=== PATIENT | female | born 1930 | race Caucasian/White ===

== ENCOUNTER 2017-08-05 15:03 | Inpatient (IN) | payer OTHER ==
[~2017-08-05] VITALS: Ht 149.9 cm; Wt 48.8 kg
[~2017-08-05 15:03] MED LIST: ASCO-63 PO; CALC1TAB9 PO; CARV6.252 PO; DICL1GEL12 TD; LEVO75TA PO; LISI-461 PO; LORA-741 PO; MULTTAB58 PO; PRLSR20 PO; TYLOTC500 PO
--- NOTE | 2017-08-05 16:10 | EMERGENCY ROOM VISIT NOTE ---
History First contact with patient: 15:19 Chief Complaint: COUGH Stated Complaint: COUGH PAIN IN RIGHT SIDE, FEVER History of Present Illness 86F who presents to the Emergency Room with complaints of cough x 2 days. There is no hemoptysis or sputum. No sick contacts. She says she also feels cold. She was sent here from her PCP's office, in the office she had a temperature of 101F. She is also complaining of right upper quadrant pain that only happens in the morning, it's been happening for the past two days. She currently has no right upper quadrant pain. No history of gallbladder issues. PMHx: HTN, Hypothyroid Meds: Synthroid, PPI, Lisinopril, Coreg. SHx: Never smoker, never chewed. Review of Systems See HPI for pertinent positives and negatives. A total of ten systems were reviewed and were otherwise negative. Constitutional: + fever, + chills Respiratory: + cough, No sputum, No wheezing, No shortness of breath, No dyspnea on exertion Cardiovascular: No chest pain Abdomen: No pain, No nausea, No vomiting, No diarrhea, No constipation (lst BM) Musculoskeletal: No joint pain Genitourinary - Female: No dysuria Endocrine: No fatigue Past Medical/Surgical History Medical Problems: (1) CHF (congestive heart failure) (2) HTN (hypertension) Social History Smoking Status: Never Smoker Housing Status: lives with family Current/Historical Medications Scheduled Acetaminophen (Tylenol), 1,000 MG PO PRN Ascorbic Acid (Vitamin C), 500 MG PO DAILY Calcium Citrate-Vitamin D (Citracal + D3 Maximum), 1 TAB PO BID Carvedilol (Coreg), 6.25 MG PO BID Levothyroxine Sodium (Synthroid), 75 MCG PO DAILY Lisinopril (Zestril), 10 MG PO DAILY Multiple Vitamin (Multivitamin), 1 TAB PO DAILY Scheduled PRN Diclofenac Sodium (Topical) (Voltaren 1% Top Gel), 2 OZ TD DAILY PRN for Pain Lorazepam (Ativan), 0.25 MG PO BID PRN for VERTIGO Physical Exam Vital Signs Date Time Temp Pulse Resp B/P (MAP) Pulse Ox O2 Delivery O2 Flow Rate FiO2 08/05/17 17:12 73 20 107/42 96 Room Air 08/05/17 16:20 97 Room Air 08/05/17 15:10 36.9 67 18 103/55 97 Physical Exam Gen: No acute distress. Thin. Not ill appearing. HEENT: Head - normocephalic and atraumatic. Pupils are equal, round, and reactive to light. Extraocular eye muscles are intact and sclera are anicteric. Ears - bilaterally patent canals with noninjected tympanic membranes and no evidence of hemotympanum. Nose - moist nasal mucosa without discharge. Mouth - moist buccal mucosa. Oropharynx is nonerythematous and there is no tonsillar exudate or edema noted. Neck: Supple; no JVD, nuchal rigidity, cervical lymphadenopathy, or auscultated bruits. Heart: Regular rate and rhythm. There is a normal S1 and S2 with no murmurs, clicks, or gallops appreciated. Lungs: Clear to auscultation on the left with no wheezes, rales, or rhonchi. RLL crackles. Abdomen: Soft, completely nontender, nondistended, with good bowel sounds. There are no palpable pulsatile masses or hepatosplenomegaly. There is no guarding, rigidity, or rebound noted. Extremities: No evidence of cyanosis, clubbing, or edema. There are easily palpable peripheral pulses. Neuro:The patient is awake and alert, oriented to day, time, and place. Muscle strength is 5/5 in all 4 extremities. The patient has equal digital product manager strength and equal pedal push and pull. There are no cerebellar signs. Medical Decision & Procedures ER Provider Diagnostic Interpretation: CHEST ONE VIEW PORTABLE HISTORY: 86 years-old Female cough x 2 days, fever, RLL crackles acute cough with fever COMPARISON: Chest radiograph 06/19/2013 TECHNIQUE: Portable AP view of the chest FINDINGS: Cardiac silhouette is within normal limits in size. Atherosclerosis of the aorta. No pneumothorax. Focal opacity of the right lung base measures 2.5 x 2.3 cm with multiple additional alveolar opacities of the right lung base and lateral right midlung. Interstitial coarsening about the left lung base suggest scarring. Trace right pleural effusion. Degenerative changes of the shoulders and spine. Levoscoliosis of the lumbar spine. IMPRESSION: 1. Alveolar opacities about the right lung base with focal opacity measuring up to 2.5 cm. Infectious pneumonia and/or pulmonary nodule are considerations. Follow-up imaging to document complete resolution is needed. 2. Trace right pleural effusion. 3. Background chronic interstitial coarsening. Laboratory Results 08/05/17 16:15 Red Blood Count 2.82, Mean Corpuscular Volume 94.7, Mean Corpuscular Hemoglobin 32.6, Mean Corpuscular Hemoglobin Concent 34.5, Mean Platelet Volume 10.1, Neutrophils (%) (Auto) 84.1, Lymphocytes (%) (Auto) 8.2, Monocytes (%) (Auto) 7.1, Eosinophils (%) (Auto) 0.1, Basophils (%) (Auto) 0.1, Neutrophils # (Auto) 11.39, Lymphocytes # (Auto) 1.11, Monocytes # (Auto) 0.96, Eosinophils # (Auto) 0.01, Basophils # (Auto) 0.01 08/05/17 16:15 Test 08/05/17 16:15 08/05/17 16:23 White Blood Count 13.53 K/uL (4.8-10.8) Red Blood Count 2.82 M/uL (4.2-5.4) Hemoglobin 9.2 g/dL (12.0-16.0) Hematocrit 26.7 % (37-47) Mean Corpuscular Volume 94.7 fL (80-100) Mean Corpuscular Hemoglobin 32.6 pg (25-34) Mean Corpuscular Hemoglobin Concent 34.5 g/dl (32-36) Platelet Count 203 K/uL (130-400) Mean Platelet Volume 10.1 fL (7.4-10.4) Neutrophils (%) (Auto) 84.1 % Lymphocytes (%) (Auto) 8.2 % Monocytes (%) (Auto) 7.1 % Eosinophils (%) (Auto) 0.1 % Basophils (%) (Auto) 0.1 % Neutrophils # (Auto) 11.39 K/uL (1.4-6.5) Lymphocytes # (Auto) 1.11 K/uL (1.2-3.4) Monocytes # (Auto) 0.96 K/uL (0.11-0.59) Eosinophils # (Auto) 0.01 K/uL (0-0.5) Basophils # (Auto) 0.01 K/uL (0-0.2) RDW Standard Deviation 44.7 fL (36.4-46.3) RDW Coefficient of Variation 12.8 % (11.5-14.5) Immature Granulocyte % (Auto) 0.4 % Immature Granulocyte # (Auto) 0.05 K/uL (0.00-0.02) Anion Gap 6.0 mmol/L (3-11) Est Creatinine Clear Calc Drug Dose 18.7 ml/min Estimated GFR () 37.4 Estimated GFR (Non- 32.3 BUN/Creatinine Ratio 34.6 (10-20) Calcium Level 7.7 mg/dl (8.5-10.1) Total Bilirubin 0.5 mg/dl (0.2-1) Aspartate Amino Transf (AST/SGOT) 137 U/L (15-37) Alanine Aminotransferase (ALT/SGPT) 81 U/L (12-78) Alkaline Phosphatase 112 U/L (45-117) Total Protein 7.3 gm/dl (6.4-8.2) Albumin 2.4 gm/dl (3.4-5.0) Globulin 4.9 gm/dl (2.5-4.0) Albumin/Globulin Ratio 0.5 (0.9-2) Lipase 142 U/L (73-393) Bedside Troponin I < 0.030 ng/ml (0-0.045) Medications Administered Medications (Trade) Dose Ordered Sig/Miguel Route Start Time Stop Time Status Last Admin Dose Admin Sodium Chloride 500 ml @ 999 mls/hr Q31M STAT IV 08/05/17 16:57 08/05/17 17:27 DC 08/05/17 17:05 999 MLS/HR Sodium Chloride 1,000 ml @ 125 mls/hr Q8H STAT IV 08/05/17 16:57 08/06/17 00:56 08/05/17 17:05 125 MLS/HR Levofloxacin (Levaquin / D5W) 750 mg NOW STAT IV 08/05/17 16:57 08/05/17 16:58 DC 08/05/17 17:05 750 MG Medical Decision The patient's care and disposition was discussed with Dr. Watson, Attending ED Physician. This is a 86F with cough x 2 days. Differential diagnosis include pneumonia, viral syndrome, otitis, pharyngitis, pneumonia, influenza, meningitis, urinary tract infection, sepsis, bacteremia, as well as others were entertained. Triage Nursing notes were reviewed. ED Course included an extensive history and physical exam, labs, Xray and EKG. 3:15- Pt was examined by resident. 3:30 - Discussed patient with attending. 5pm - X-ray suggested Pneumonia, pt was given Levoquin and IVF and an ambulatory pulse ox. 5:15 - Result discussed extensively with patient and family. There is an unknown reason for the elevated liver enzymes. 5:45 - Ordering a hepatitis Panel and a liver US. Given the preference they would like to go home but only if medically able. Family understands that if patient becomes hypoxic while walking she will likely be a candidate for admission. Patient signed out to Dr. Watson. Head Trauma GCS Score: 15 Impression Primary Impression: Pneumonia Additional Impressions: Hyponatremia Elevated liver enzymes Departure Information Referrals Betty Bueno D.OFabricio (PCP) Patient Instructions My [facility] Resident Involvement: Resident Care Provided Care Provided: Adult ED Problem Qualifiers
--- NOTE | 2017-08-05 16:22 | DIAGNOSTIC IMAGING REPORT ---
CHEST ONE VIEW PORTABLE HISTORY: 86 years-old Female cough x 2 days, fever, RLL crackles acute cough with fever COMPARISON: Chest radiograph 06/19/2013 TECHNIQUE: Portable AP view of the chest FINDINGS: Cardiac silhouette is within normal limits in size. Atherosclerosis of the aorta. No pneumothorax. Focal opacity of the right lung base measures 2.5 x 2.3 cm with multiple additional alveolar opacities of the right lung base and lateral right midlung. Interstitial coarsening about the left lung base suggest scarring. Trace right pleural effusion. Degenerative changes of the shoulders and spine. Levoscoliosis of the lumbar spine. IMPRESSION: 1. Alveolar opacities about the right lung base with focal opacity measuring up to 2.5 cm. Infectious pneumonia and/or pulmonary nodule are considerations. Follow-up imaging to document complete resolution is needed. 2. Trace right pleural effusion. 3. Background chronic interstitial coarsening. The above report was generated using voice recognition software. It may contain grammatical, syntax or spelling errors. Electronically signed by: Watson Obrien M.D. 08/05/2017 4:21 PM Dictated Date/Time: 08/05/2017 4:19 PM
[2017-08-05 16:30] LABS: BASO % 0.1 %; BASO ABS # 0.01 K/uL (0-0.2); EOS % 0.1 %; EOS ABS # 0.01 K/uL (0-0.5); HEMATOCRIT 26.7 % (37-47); HEMOGLOBIN 9.2 g/dL (12.0-16.0); IG# 0.05 K/uL (0.00-0.02); LYMPH % 8.2 %; LYMPH ABS # 1.11 K/uL (1.2-3.4); MEAN CELL VOLUME 94.7 fL (80-100); MEAN CORPUSCULAR HEMOGLOBIN 32.6 pg (25-34); MEAN CORPUSCULAR HGB CONC 34.5 g/dl (32-36); MEAN PLATELET VOLUME 10.1 fL (7.4-10.4); MONO % 7.1 %; MONO ABS # 0.96 K/uL (0.11-0.59); NEUT % 84.1 %; NEUT ABS # 11.39 K/uL (1.4-6.5); PLATELET COUNT 203 K/uL (130-400); RED CELL DISTRIBUTION WIDTH CV 12.8 % (11.5-14.5); RED CELL DISTRIBUTION WIDTH SD 44.7 fL (36.4-46.3); WHITE BLOOD COUNT 13.53 K/uL (4.8-10.8)
[2017-08-05 16:54] LABS: ALBUMIN 2.4 gm/dl (3.4-5.0); CALCIUM 7.7 mg/dl (8.5-10.1); CREATININE 1.45 mg/dl (0.60-1.20); POTASSIUM 4.3 mmol/L (3.5-5.1)
[2017-08-05 16:57] LABS: TOTAL PROTEIN 7.3 gm/dl (6.4-8.2)
[2017-08-05] MEDS ORDERED: SODIUM CHLORIDE 0.9% 1000ML 1,000 ML IV STA (16:57)
[2017-08-05] MEDS ORDERED: LEVAQUIN 750MG / 150ML D5W IV STA (16:57)
[2017-08-05] MEDS ORDERED: SODIUM CHLORIDE 0.9% 500ML 500 ML IV STA (16:57)
[2017-08-05 18:54] LABS: HEP C IGG 13 YRS+OLDER_RFLX NEG (NEG)
--- NOTE | 2017-08-05 20:41 | EMERGENCY ROOM VISIT NOTE ---
History Report prepared by Ivelisse: Andrea Alford Under the Supervision of: Dr. Gutierrez Watson M.D. First contact with patient: 15:19 Chief Complaint: COUGH Stated Complaint: COUGH PAIN IN RIGHT SIDE, FEVER History of Present Illness The patient is an 86 year old female with a history of hypertension and resolved CHF who presents to the Emergency Room with complaints of an intermittent cough that started 2 days ago. She has no hemoptysis. The patient says that she has been having chills, and her primary care physician today noted that the patient had a fever of 101 today. The patient adds that she has had right upper quadrant abdominal pain for the past 2 days, which is only in the morning. Once she gets up she is fine. The patient notes that she has had decreased PO intake recently, and adds that she has been having a blood pressure recently that is elevated for her. Pt denies LOC, headache, diaphoresis , visual changes, neck pain, chest pain, breathing difficulties, nausea, vomiting, back pain, melena, hematochezia, urinary symptoms, numbness, weakness , lymphadenopathy, rash, or other complaints. Source of History: patient Onset: 2 days ago Position: other (global) Symptom Intensity: no hemoptysis Quality: other (cough) Timing: intermittent Associated Symptoms: + fevers, + chills, + abdominal pain (RUQ) Note: Associated symptoms: Elevated blood pressure subjectively. Decreased PO intake. Review of Systems See HPI for pertinent positives and negatives. A total of ten systems were reviewed and were otherwise negative. Past Medical & Surgical Medical Problems: (1) CHF (congestive heart failure) (2) HTN (hypertension) Family History Family history omitted secondary to patient's advanced age. Social History Smoking Status: Never Smoker Marital Status: Housing Status: lives with family Occupation Status: retired Current/Historical Medications Scheduled Acetaminophen (Tylenol), 1,000 MG PO PRN Ascorbic Acid (Vitamin C), 500 MG PO DAILY Calcium Citrate-Vitamin D (Citracal + D3 Maximum), 1 TAB PO BID Carvedilol (Coreg), 6.25 MG PO BID Levothyroxine Sodium (Synthroid), 75 MCG PO DAILY Lisinopril (Zestril), 10 MG PO DAILY Multiple Vitamin (Multivitamin), 1 TAB PO DAILY Scheduled PRN Diclofenac Sodium (Topical) (Voltaren 1% Top Gel), 2 OZ TD DAILY PRN for Pain Lorazepam (Ativan), 0.25 MG PO BID PRN for VERTIGO Allergies Coded Allergies: Sulfa Drugs (Verified Allergy, Unknown, 08/05/17) Physical Exam Vital Signs Date Time Temp Pulse Resp B/P (MAP) Pulse Ox O2 Delivery O2 Flow Rate FiO2 08/05/17 19:32 18 97 Nasal Cannula 2.0 08/05/17 19:29 68 18 132/63 84 Room Air 08/05/17 18:10 74 20 107/46 96 Room Air 08/05/17 17:12 73 20 107/42 96 Room Air 08/05/17 16:20 97 Room Air 08/05/17 15:10 36.9 67 18 103/55 97 Physical Exam GENERAL: Awake, alert, tired-appearing, in no distress HENT: Normocephalic, atraumatic. Oropharynx unremarkable. EYES: Normal conjunctiva. Sclera non-icteric. NECK: Supple. No nuchal rigidity. FROM. No masses. RESPIRATORY: Crackles right base. No wheezes. No rales. CARDIAC: Normal rate. Normal rhythm. No murmurs. No rubs. Extremities warm and well perfused. Pulses equal. No JVD. GI: Soft, non-distended. No tenderness to palpation. No rebound or guarding. No masses. RECTAL: Deferred. MUSCULOSKELETAL: Atraumatic. Chest examination reveals no tenderness. The back is symmetrical on inspection without obvious abnormality. There is no CVA tenderness to palpation. No joint edema. LOWER EXTREMITIES: Calves are equal size bilaterally and non-tender. No edema. No discoloration. NEURO: Normal sensorium. No sensory or motor deficits noted. SKIN: No rash or jaundice noted. Medical Decision & Procedures ER Provider Diagnostic Interpretation: X-ray: Per my interpretation, radiologist review. CHEST ONE VIEW PORTABLE HISTORY: 86 years-old Female cough x 2 days, fever, RLL crackles acute cough with fever COMPARISON: Chest radiograph 06/19/2013 TECHNIQUE: Portable AP view of the chest FINDINGS: Cardiac silhouette is within normal limits in size. Atherosclerosis of the aorta. No pneumothorax. Focal opacity of the right lung base measures 2.5 x 2.3 cm with multiple additional alveolar opacities of the right lung base and lateral right midlung. Interstitial coarsening about the left lung base suggest scarring. Trace right pleural effusion. Degenerative changes of the shoulders and spine. Levoscoliosis of the lumbar spine. IMPRESSION: 1. Alveolar opacities about the right lung base with focal opacity measuring up to 2.5 cm. Infectious pneumonia and/or pulmonary nodule are considerations. Follow-up imaging to document complete resolution is needed. 2. Trace right pleural effusion. 3. Background chronic interstitial coarsening. The above report was generated using voice recognition software. It may contain grammatical, syntax or spelling errors. Electronically signed by: Watson Obrien M.D. 08/05/2017 4:21 PM Dictated Date/Time: 08/05/2017 4:19 PM Laboratory Results 08/05/17 16:15 Red Blood Count 2.82, Mean Corpuscular Volume 94.7, Mean Corpuscular Hemoglobin 32.6, Mean Corpuscular Hemoglobin Concent 34.5, Mean Platelet Volume 10.1, Neutrophils (%) (Auto) 84.1, Lymphocytes (%) (Auto) 8.2, Monocytes (%) (Auto) 7.1, Eosinophils (%) (Auto) 0.1, Basophils (%) (Auto) 0.1, Neutrophils # (Auto) 11.39, Lymphocytes # (Auto) 1.11, Monocytes # (Auto) 0.96, Eosinophils # (Auto) 0.01, Basophils # (Auto) 0.01 08/05/17 16:15 Test 08/05/17 16:15 08/05/17 16:23 White Blood Count 13.53 K/uL (4.8-10.8) Red Blood Count 2.82 M/uL (4.2-5.4) Hemoglobin 9.2 g/dL (12.0-16.0) Hematocrit 26.7 % (37-47) Mean Corpuscular Volume 94.7 fL (80-100) Mean Corpuscular Hemoglobin 32.6 pg (25-34) Mean Corpuscular Hemoglobin Concent 34.5 g/dl (32-36) Platelet Count 203 K/uL (130-400) Mean Platelet Volume 10.1 fL (7.4-10.4) Neutrophils (%) (Auto) 84.1 % Lymphocytes (%) (Auto) 8.2 % Monocytes (%) (Auto) 7.1 % Eosinophils (%) (Auto) 0.1 % Basophils (%) (Auto) 0.1 % Neutrophils # (Auto) 11.39 K/uL (1.4-6.5) Lymphocytes # (Auto) 1.11 K/uL (1.2-3.4) Monocytes # (Auto) 0.96 K/uL (0.11-0.59) Eosinophils # (Auto) 0.01 K/uL (0-0.5) Basophils # (Auto) 0.01 K/uL (0-0.2) RDW Standard Deviation 44.7 fL (36.4-46.3) RDW Coefficient of Variation 12.8 % (11.5-14.5) Immature Granulocyte % (Auto) 0.4 % Immature Granulocyte # (Auto) 0.05 K/uL (0.00-0.02) Anion Gap 6.0 mmol/L (3-11) Est Creatinine Clear Calc Drug Dose 18.7 ml/min Estimated GFR () 37.4 Estimated GFR (Non- 32.3 BUN/Creatinine Ratio 34.6 (10-20) Calcium Level 7.7 mg/dl (8.5-10.1) Total Bilirubin 0.5 mg/dl (0.2-1) Aspartate Amino Transf (AST/SGOT) 137 U/L (15-37) Alanine Aminotransferase (ALT/SGPT) 81 U/L (12-78) Alkaline Phosphatase 112 U/L (45-117) Total Protein 7.3 gm/dl (6.4-8.2) Albumin 2.4 gm/dl (3.4-5.0) Globulin 4.9 gm/dl (2.5-4.0) Albumin/Globulin Ratio 0.5 (0.9-2) Lipase 142 U/L (73-393) Hepatitis B Surface Antigen NEG (NEG) Hepatitis B Surface Antibody POS Hepatitis C Antibody NEG (NEG) Bedside Troponin I < 0.030 ng/ml (0-0.045) Laboratory results reviewed by me Medications Administered Medications (Trade) Dose Ordered Sig/Miguel Route Start Time Stop Time Status Last Admin Dose Admin Sodium Chloride 500 ml @ 999 mls/hr Q31M STAT IV 08/05/17 16:57 08/05/17 17:27 DC 08/05/17 17:05 999 MLS/HR Sodium Chloride 1,000 ml @ 125 mls/hr Q8H STAT IV 08/05/17 16:57 08/06/17 00:56 08/05/17 17:05 125 MLS/HR Levofloxacin (Levaquin / D5W) 750 mg NOW STAT IV 08/05/17 16:57 08/05/17 16:58 DC 08/05/17 17:05 750 MG ECG Per My Interpretation Indication: abdominal pain Rate (beats per minute): 75 Rhythm: normal sinus Findings: LBBB, no acute ischemic change Comparison ECG Date: compared to 06/16/13, LBBB is new but was present in 2009 ED Course 1527: The patient was evaluated in room C6 by the resident. A complete history and physical exam was performed. 1649: The patient was evaluated in room C6 by myself. A complete history and physical exam was performed. 1656: Levaquin / D5W 750 mg IV, NSS 1000 ml @ 125 mls/hr IV, NSS 500 ml @ 999 mls/hr IV. 0: Upon reexamination, the patient was hypoxic on ambulation. I discussed the test results and treatment plan with her. The patient will be evaluated for further management. 1937: I discussed the patient with Dr. Feliz Jarvis security orderly - he will evaluate the patient for further treatment. Medical Decision Prior records/ancillary studies reviewed. Triage Nursing notes reviewed and agree them. Additional history obtained from the family. The patient's history was concerning for cough and fever. Differential diagnosis: Etiologies such as pneumonia, COPD, reactive airway disease, CHF, cardiac ischemia, pulmonary embolism, pneumothorax, musculoskeletal, infections, gastrointestinal, as well as others were entertained. Physical examination: As above. The patient was noted to have hypoxia when she was ambulated. ER treatment provided: Normal saline hydration IV Levaquin Supplemental oxygen On reassessment the patient felt better. Diagnostic interpretation by me: The electrocardiogram was negative for pathologic change. The labs revealed a moderate leukocytosis and anemia on CBC. Chemistry panel was unremarkable. Imaging studies: Chest x-ray as above. Consultation: A consultation was placed with the hospitalist. The case was discussed and diagnostics were reviewed. The patient was evaluated in the ER for further treatment. The patient was seen and examined with Dr. Cherry, resident physician. We discussed the case and treatments ordered, reviewed the results, and determine the disposition. Please refer to the resident's note for additional details. I have been directly involved with the management and disposition as well as independently evaluated the patient as documented in this note. Medication Reconcilliation Current Medication List: was personally reviewed by me Blood Pressure Screening Patient's blood pressure: Normal blood pressure Consults Time Called: 1934 Consulting Physician: Dr. Feliz Jarvis security orderly Returned Call: 1937 I discussed the patient with Dr. Feliz Jarvis security orderly - he will evaluate the patient for further treatment. Impression Primary Impression: PNA (pneumonia) Additional Impression: Hypoxia Scribe Attestation The scribe's documentation has been prepared under my direction and personally reviewed by me in its entirety. I confirm that the note above accurately reflects all work, treatment, procedures, and medical decision making performed by me. Departure Information Dispostion Being Evaluated By Hospitalist Referrals Betty Bueno D.O. (PCP) Patient Instructions My [facility] Problem Qualifiers
--- NOTE | 2017-08-05 20:53 | DIAGNOSTIC IMAGING REPORT ---
(LIVER) ABDOMEN LIMITED HISTORY: 86 years-old Female elevated LFTS and RUQ pain acute right upper quadrant abdominal pain COMPARISON: Chest radiograph 08/05/2017 TECHNIQUE: Multiple real-time sonographic images of the abdominal right upper quadrant were obtained assessing grayscale appearance and color flow FINDINGS: Right-sided pleural effusion incidentally noted. Pancreas appears unremarkable. Liver is within normal limits without focal mass or intrahepatic or ductal dilation. Gallbladder is within normal limits without cholelithiasis. Gallbladder wall measures in the upper limits of normal at 3 mm. No pericholecystic fluid collections. Sonographic Davis sign reported as negative. There is a suggested phrygian cap of the fundal Gallbladder. Common bile duct is normal, 5 mm. Mildly thinned cortex is noted throughout the right kidney. Complex cystic lesion of the superior pole right kidney measures up to 2.5 cm without internal vascularity. Mild pelvic fullness suggests external renal pelvis without shital hydronephrosis. IMPRESSION: 1. No cholelithiasis or acute cholecystitis. 2. No biliary ductal dilation. 3. Complex cystic lesion of the superior pole right kidney, 2.5 cm without internal vascularity identified. 4. Small right pleural effusion. The above report was generated using voice recognition software. It may contain grammatical, syntax or spelling errors. Electronically signed by: Watson Obrien M.D. 08/05/2017 8:52 PM Dictated Date/Time: 08/05/2017 8:48 PM
[2017-08-05] MEDS ORDERED: LEVO50TA6 PO (21:09)
[2017-08-05] MEDS ORDERED: BENZONATATE 100MG CAP PO PRN (21:15)
[2017-08-05 22:15] VITALS: BP 138/68; PULSE 76; TEMP 37.1; O2SAT 97; Ht 149.9 cm; Wt 48.8 kg
--- NOTE | 2017-08-06 01:53 | History and Physical ---
History & Physical Date & Time of Service: August 06, 2017 at 01:24 Chief Complaint: Cough, Pneumonia Primary Care Physician: Betty Bueno D.O. History of Present Illness Source: patient, clinic records, hospital records 86 years old female with past medical history of CKD stage III, anemia, hypothyroidism, hypertension presented to the ER from PCP office with chief complaint of cough for the past 4 days. Patient saw PCP today for nonproductive cough associated with weakness and poor oral intake. While at PCP office she was noted to have a temperature of 101F. Patient states she has not been eating much for the past 2 days. She said that she feels cold but that seems to be usual for her. She also complained of right lower rib and upper abdominal pain that occurs only in the morning when she wakes up, but as the day progress the pain improves. Denies any recent traveling or sick contacts. Denies any chest pain, palpitation, dizziness, shortness of breath, and pain. Past Medical/Surgical History Medical Problems: (1) CHF (congestive heart failure) (2) Conjunctivitis (3) Cough (4) Fall (5) Fracture of fourth metacarpal bone of right hand (6) HTN (hypertension) (7) Pneumonia (8) Sepsis (9) Sepsis (10) Wrist fracture, right Social History Smoking Status: Never Smoker Marital Status: Occupational Status: retired Immunizations History of Influenza Vaccine: Yes History of Tetanus Vaccine?: Yes History of Pneumococcal: Yes History of Hepatitis B Vaccine: Yes Allergies Coded Allergies: Sulfa Drugs (Verified Allergy, Unknown, 08/05/17) Home Medications Scheduled Acetaminophen (Tylenol), 500 MG PO PRN Ascorbic Acid (Vitamin C), 500 MG PO DAILY Calcium Citrate-Vitamin D (Citracal + D3 Maximum), 1 TAB PO BID Carvedilol (Coreg), 6.25 MG PO BID Levothyroxine Sodium (Levothyroxine Sodium), 1 TAB PO DAILY Lisinopril (Zestril), 10 MG PO DAILY Multiple Vitamin (Multivitamin), 1 TAB PO DAILY Scheduled PRN Diclofenac Sodium (Topical) (Voltaren 1% Top Gel), 2 OZ TD DAILY PRN for Pain Lorazepam (Ativan), 0.25 MG PO BID PRN for VERTIGO Review of Systems Constitutional: + fever, + chills, + weakness, + fatigue Eyes: No eye pain, No diplopia ENT: + problem reported (hearing aid), No nasal symptoms, No sore throat, No trouble swallowing Respiratory: + cough, No sputum, No shortness of breath, No dyspnea on exertion Cardiovascular: No chest pain, No claudication, No palpitations Abdomen: + pain, No nausea, No vomiting, No diarrhea, No constipation Musculoskeletal: No swelling, No calf pain Genitourinary - Female: No dysuria, No urinary frequency Neurologic: + weakness, No paralysis Psychiatric: No substance abuse Endocrine: + fatigue Hematologic / Lymphatic: No abnormal bleeding/bruising Integumentary: No rash, No itch Physical Exam Vital Signs Date Time Temp Pulse Resp B/P (MAP) Pulse Ox O2 Delivery O2 Flow Rate FiO2 08/05/17 22:15 37.1 76 18 138/68 97 Nasal Cannula 2.0 08/05/17 22:00 65 20 125/58 96 Nasal Cannula 2.0 08/05/17 20:45 70 116/82 96 Nasal Cannula 2.0 08/05/17 19:32 18 97 Nasal Cannula 2.0 08/05/17 19:29 68 18 132/63 84 Room Air 08/05/17 18:10 74 20 107/46 96 Room Air 08/05/17 17:12 73 20 107/42 96 Room Air 08/05/17 16:20 97 Room Air 08/05/17 15:10 36.9 67 18 103/55 97 General Appearance: WD/WN, no apparent distress Head: normocephalic, atraumatic Eyes: PERRL, EOMI ENT: + pertinent finding (decrease hearing function) Neck: no JVD, trachea midline Respiratory/Chest: chest non-tender, no respiratory distress, no accessory muscle use, + crackles (right side) Cardiovascular: regular rate, rhythm, no JVD, no murmur Abdomen/GI: normal bowel sounds, non tender, soft Back: no CVA tenderness Extremities/Musculoskelatal: no calf tenderness Neurologic/Psych: no motor/sensory deficits, alert, oriented x 3 Skin: warm/dry, no rash Diagnostics Laboratory Results Results Past 24 Hours Test 08/05/17 16:15 08/05/17 16:23 Range/Units White Blood Count 13.53 4.8-10.8 K/uL Red Blood Count 2.82 4.2-5.4 M/uL Hemoglobin 9.2 12.0-16.0 g/dL Hematocrit 26.7 37-47 % Mean Corpuscular Volume 94.7 80-100 fL Mean Corpuscular Hemoglobin 32.6 25-34 pg Mean Corpuscular Hemoglobin Concent 34.5 32-36 g/dl Platelet Count 203 130-400 K/uL Mean Platelet Volume 10.1 7.4-10.4 fL Neutrophils (%) (Auto) 84.1 % Lymphocytes (%) (Auto) 8.2 % Monocytes (%) (Auto) 7.1 % Eosinophils (%) (Auto) 0.1 % Basophils (%) (Auto) 0.1 % Neutrophils # (Auto) 11.39 1.4-6.5 K/uL Lymphocytes # (Auto) 1.11 1.2-3.4 K/uL Monocytes # (Auto) 0.96 0.11-0.59 K/uL Eosinophils # (Auto) 0.01 0-0.5 K/uL Basophils # (Auto) 0.01 0-0.2 K/uL RDW Standard Deviation 44.7 36.4-46.3 fL RDW Coefficient of Variation 12.8 11.5-14.5 % Immature Granulocyte % (Auto) 0.4 % Immature Granulocyte # (Auto) 0.05 0.00-0.02 K/uL Sodium Level 129 136-145 mmol/L Potassium Level 4.3 3.5-5.1 mmol/L Chloride Level 98 98-107 mmol/L Carbon Dioxide Level 25 21-32 mmol/L Anion Gap 6.0 3-11 mmol/L Blood Urea Nitrogen 50 7-18 mg/dl Creatinine 1.45 0.60-1.20 mg/dl Est Creatinine Clear Calc Drug Dose 18.7 ml/min Estimated GFR () 37.4 Estimated GFR (Non- 32.3 BUN/Creatinine Ratio 34.6 10-20 Random Glucose 137 70-99 mg/dl Calcium Level 7.7 8.5-10.1 mg/dl Total Bilirubin 0.5 0.2-1 mg/dl Aspartate Amino Transf (AST/SGOT) 137 15-37 U/L Alanine Aminotransferase (ALT/SGPT) 81 12-78 U/L Alkaline Phosphatase 112 45-117 U/L Total Protein 7.3 6.4-8.2 gm/dl Albumin 2.4 3.4-5.0 gm/dl Globulin 4.9 2.5-4.0 gm/dl Albumin/Globulin Ratio 0.5 0.9-2 Lipase 142 73-393 U/L Hepatitis B Surface Antigen NEG NEG Hepatitis B Surface Antibody POS Hepatitis C Antibody NEG NEG Bedside Troponin I < 0.030 0-0.045 ng/ml Microbiology Results 08/05/17 Blood Culture, Received Pending 08/05/17 Blood Culture, Received Pending Diagnostic Radiology (LIVER) ABDOMEN LIMITED HISTORY: 86 years-old Female elevated LFTS and RUQ pain acute right upper quadrant abdominal pain COMPARISON: Chest radiograph 08/05/2017 TECHNIQUE: Multiple real-time sonographic images of the abdominal right upper quadrant were obtained assessing grayscale appearance and color flow FINDINGS: Right-sided pleural effusion incidentally noted. Pancreas appears unremarkable. Liver is within normal limits without focal mass or intrahepatic or ductal dilation. Gallbladder is within normal limits without cholelithiasis. Gallbladder wall measures in the upper limits of normal at 3 mm. No pericholecystic fluid collections. Sonographic Davis sign reported as negative. There is a suggested phrygian cap of the fundal Gallbladder. Common bile duct is normal, 5 mm. Mildly thinned cortex is noted throughout the right kidney. Complex cystic lesion of the superior pole right kidney measures up to 2.5 cm without internal vascularity. Mild pelvic fullness suggests external renal pelvis without shital hydronephrosis. IMPRESSION: 1. No cholelithiasis or acute cholecystitis. 2. No biliary ductal dilation. 3. Complex cystic lesion of the superior pole right kidney, 2.5 cm without internal vascularity identified. 4. Small right pleural effusion. The above report was generated using voice recognition software. It may contain grammatical, syntax or spelling errors. Electronically signed by: Watson Obrien M.D. 08/05/2017 8:52 PM Dictated Date/Time: 08/05/2017 8:48 PM [~ rep ct add3]] CHEST ONE VIEW PORTABLE HISTORY: 86 years-old Female cough x 2 days, fever, RLL crackles acute cough with fever COMPARISON: Chest radiograph 06/19/2013 TECHNIQUE: Portable AP view of the chest FINDINGS: Cardiac silhouette is within normal limits in size. Atherosclerosis of the aorta. No pneumothorax. Focal opacity of the right lung base measures 2.5 x 2.3 cm with multiple additional alveolar opacities of the right lung base and lateral right midlung. Interstitial coarsening about the left lung base suggest scarring. Trace right pleural effusion. Degenerative changes of the shoulders and spine. Levoscoliosis of the lumbar spine. IMPRESSION: 1. Alveolar opacities about the right lung base with focal opacity measuring up to 2.5 cm. Infectious pneumonia and/or pulmonary nodule are considerations. Follow-up imaging to document complete resolution is needed. 2. Trace right pleural effusion. 3. Background chronic interstitial coarsening. The above report was generated using voice recognition software. It may contain grammatical, syntax or spelling errors. Electronically signed by: Watson Obrien M.D. 08/05/2017 4:21 PM Dictated Date/Time: 08/05/2017 4:19 PM Impression Assessment and Plan Pneumonia Nonproductive cough Was sent from PCP office for fever CXR showed alveolar opacities about the right lung base with focal opacity measuring up to 2.5 cm. Receive Levaquin in the ER Continue Levaquin 750mg Check blood culture DuoNeb treatment Will need repeat chest x-ray in 4-6 weeks to ensure complete resolution Elevated liver enzyme Hep C Liver ultrasound showed no biliary ductal dilation Complex cystic lesion of the superior pole right kidney, 2.5 cm without internal vascularity identified. Monitor liver enzyme Hypertension Continue lisinopril and coreg BP stable CKD stage III Creatinine baseline between 1.2 to 1.4 Creatinine on admission 1.4 Monitor BMP Hypothyroidism Check TSH Continue levothyroxine Hyponatremia Possible related to poor oral intake Sodium on admission 129 Monitor BMP Congestive heart failure No sign of overload Stable DVT prophylaxis on heparin subcu CODE STATUS full no mechanical ventilation Resuscitation Status VTE Prophylaxis Will order VTE Prophylaxis: Yes
[2017-08-06] MEDS ORDERED: ALBUT/IPRATROP 3MG/0.5MG NEB 3 ML VIAL INH PRN (05:15)
[2017-08-06] MEDS: LEVOTHYROXINE 50 MCG TAB PO SCH (05:46)
[2017-08-06 06:14] LABS: HEMATOCRIT 25.5 % (37-47); HEMOGLOBIN 8.8 g/dL (12.0-16.0); MEAN CELL VOLUME 95.1 fL (80-100); MEAN CORPUSCULAR HEMOGLOBIN 32.8 pg (25-34); MEAN CORPUSCULAR HGB CONC 34.5 g/dl (32-36); MEAN PLATELET VOLUME 9.9 fL (7.4-10.4); PLATELET COUNT 206 K/uL (130-400); RED CELL DISTRIBUTION WIDTH CV 13.2 % (11.5-14.5); RED CELL DISTRIBUTION WIDTH SD 45.9 fL (36.4-46.3); WHITE BLOOD COUNT 11.01 K/uL (4.8-10.8)
[2017-08-06 06:20] LABS: INR 1.2 (0.9-1.1)
[2017-08-06 06:41] LABS: CALCIUM 7.5 mg/dl (8.5-10.1); CREATININE 1.12 mg/dl (0.60-1.20); POTASSIUM 4.1 mmol/L (3.5-5.1)
[2017-08-06 06:45] LABS: TOTAL PROTEIN 6.2 gm/dl (6.4-8.2)
[2017-08-06 07:02] VITALS: BP 91/50; PULSE 72; TEMP 36.7; O2SAT 97
[2017-08-06] MEDS: MULTIVITAMIN TAB PO SCH (08:47)
[2017-08-06] MEDS: CALCIUM 600MG + VIT D 400 IU TAB PO SCH ×2 (08:47→16:30)
[2017-08-06] MEDS: LISINOPRIL 10 MG TAB PO SCH (08:47)
[2017-08-06] MEDS: CARVEDILOL 6.25 MG TAB PO SCH ×2 (08:47→21:06)
[2017-08-06] MEDS: ASCORBIC ACID 500 MG TAB PO SCH (08:47)
[2017-08-06] MEDS: HEPARIN SOD 5000 UNIT/0.5 ML CARP SQ SCH ×2 (10:35→21:10)
--- NOTE | 2017-08-06 12:03 | Progress Note ---
Subjective Date of Service: August 06, 2017. Subjective Pt evaluation today including: conversation w/ patient, physical exam, lab review, review of studies, review of inpatient medication list Saw/examined the patient in room 256 She is feeling better than on admission, still feeling weak though cough persists, no fevers/chills today Problem List Medical Problems: (1) Elevated liver enzymes Status: Acute (2) Hyponatremia Status: Acute (3) Hypoxia Status: Acute (4) PNA (pneumonia) Status: Acute (5) Pneumonia Status: Acute Review of Systems Constitutional: + weakness, + fatigue, No fever, No chills Respiratory: + cough, + sputum, + shortness of breath, No wheezing, No dyspnea on exertion, No dyspnea at rest, No hemoptysis Cardiac: No chest pain, No edema, No palpitations Medications Current Inpatient Medications Medications (Trade) Dose Ordered Sig/Miguel Route Start Time Stop Time Status Last Admin Dose Admin Carvedilol (Coreg Tab) 6.25 mg BID PO 08/06/17 09:00 09/05/17 08:59 Levothyroxine Sodium (Synthroid Tab) 50 mcg DAILYBB PO 08/06/17 06:30 09/05/17 06:29 08/06/17 05:46 50 MCG Lisinopril (Zestril Tab) 10 mg DAILY PO 08/06/17 09:00 09/05/17 08:59 08/06/17 08:47 10 MG Multivitamins (Multivitamin Tab) 1 tab DAILY PO 08/06/17 09:00 09/05/17 08:59 08/06/17 08:47 1 TAB Ascorbic Acid (Vitamin C Tab) 500 mg DAILY PO 08/06/17 09:00 09/05/17 08:59 08/06/17 08:47 500 MG Calcium/Vitamin D (Caltrate Plus Tab) 1 tab BID17 PO 08/06/17 09:00 09/05/17 08:59 08/06/17 08:47 1 TAB Benzonatate (Tessalon Perles Cap) 100 mg TID PRN PO 08/05/17 21:15 09/04/17 21:14 Levofloxacin 750 mg/Prmx 150 ml @ 100 mls/hr Q2D IV 08/07/17 17:00 08/14/17 16:59 Heparin Sodium (Porcine) (Heparin Sq 5000 Unit/0.5ml) 5,000 unit Q12 SQ 08/06/17 09:00 09/05/17 08:59 08/06/17 10:35 5,000 UNIT Albuterol/ Ipratropium (Duoneb) 3 ml Q4R PRN INH 08/06/17 05:15 09/05/17 05:14 Objective Vital Signs Date Time Temp Pulse Resp B/P (MAP) Pulse Ox O2 Delivery O2 Flow Rate FiO2 08/06/17 08:00 Nasal Cannula 2.0 08/06/17 07:02 36.7 72 18 91/50 (64) 97 Nasal Cannula 2.0 08/06/17 01:25 Nasal Cannula 2.0 08/05/17 22:15 37.1 76 18 138/68 97 Nasal Cannula 2.0 08/05/17 22:00 65 20 125/58 96 Nasal Cannula 2.0 08/05/17 20:45 70 116/82 96 Nasal Cannula 2.0 08/05/17 19:32 18 97 Nasal Cannula 2.0 08/05/17 19:29 68 18 132/63 84 Room Air 08/05/17 18:10 74 20 107/46 96 Room Air 08/05/17 17:12 73 20 107/42 96 Room Air 08/05/17 16:20 97 Room Air 08/05/17 15:10 36.9 67 18 103/55 97 Physical Exam General Appearance: no apparent distress Respiratory/Chest: chest non-tender, lungs clear, normal breath sounds, no respiratory distress, no accessory muscle use Cardiovascular: regular rate, rhythm, no edema, no gallop, no JVD, no murmur Abdomen: normal bowel sounds, non tender, soft Extremities: normal range of motion, non-tender, normal inspection, no pedal edema, no calf tenderness Neurologic/Psychiatric: no motor/sensory deficits, alert, normal mood/affect Laboratory Results Last 24 Hours Test 08/05/17 16:15 08/05/17 16:23 08/06/17 06:00 White Blood Count 13.53 K/uL 11.01 K/uL Red Blood Count 2.82 M/uL 2.68 M/uL Hemoglobin 9.2 g/dL 8.8 g/dL Hematocrit 26.7 % 25.5 % Mean Corpuscular Volume 94.7 fL 95.1 fL Mean Corpuscular Hemoglobin 32.6 pg 32.8 pg Mean Corpuscular Hemoglobin Concent 34.5 g/dl 34.5 g/dl Platelet Count 203 K/uL 206 K/uL Mean Platelet Volume 10.1 fL 9.9 fL Neutrophils (%) (Auto) 84.1 % Lymphocytes (%) (Auto) 8.2 % Monocytes (%) (Auto) 7.1 % Eosinophils (%) (Auto) 0.1 % Basophils (%) (Auto) 0.1 % Neutrophils # (Auto) 11.39 K/uL Lymphocytes # (Auto) 1.11 K/uL Monocytes # (Auto) 0.96 K/uL Eosinophils # (Auto) 0.01 K/uL Basophils # (Auto) 0.01 K/uL RDW Standard Deviation 44.7 fL 45.9 fL RDW Coefficient of Variation 12.8 % 13.2 % Immature Granulocyte % (Auto) 0.4 % Immature Granulocyte # (Auto) 0.05 K/uL Sodium Level 129 mmol/L 135 mmol/L Potassium Level 4.3 mmol/L 4.1 mmol/L Chloride Level 98 mmol/L 104 mmol/L Carbon Dioxide Level 25 mmol/L 22 mmol/L Anion Gap 6.0 mmol/L 9.0 mmol/L Blood Urea Nitrogen 50 mg/dl 38 mg/dl Creatinine 1.45 mg/dl 1.12 mg/dl Est Creatinine Clear Calc Drug Dose 18.7 ml/min 24.2 ml/min Estimated GFR () 37.4 51.2 Estimated GFR (Non- 32.3 44.1 BUN/Creatinine Ratio 34.6 34.3 Random Glucose 137 mg/dl 88 mg/dl Calcium Level 7.7 mg/dl 7.5 mg/dl Total Bilirubin 0.5 mg/dl 0.4 mg/dl Aspartate Amino Transf (AST/SGOT) 137 U/L 109 U/L Alanine Aminotransferase (ALT/SGPT) 81 U/L 73 U/L Alkaline Phosphatase 112 U/L 92 U/L Total Protein 7.3 gm/dl 6.2 gm/dl Albumin 2.4 gm/dl 2.0 gm/dl Globulin 4.9 gm/dl 4.2 gm/dl Albumin/Globulin Ratio 0.5 0.5 Lipase 142 U/L Hepatitis B Surface Antigen NEG Hepatitis B Surface Antibody POS Hepatitis C Antibody NEG Bedside Troponin I < 0.030 ng/ml Prothrombin Time 12.1 SECONDS Prothromb Time International Ratio 1.2 Assessment and Plan This is an 86 year old female with a past medical history of HTN, hypothyroidism , CKD stage 3, chronic anemia, chronic diastolic CHF - presents with cough, fever and found to have pneumonia Community Acquired Pneumonia - CXR - Alveolar opacities about the right lung base with focal opacity measuring up to 2.5 cm. Infectious pneumonia and/or pulmonary nodule are considerations. Follow-up imaging to document complete resolution is needed. - fevers, cough, white count elevation - giving Levaquin and IVFs - white count improving, clinically improving, monitor - likely d/c home in 1-2 days with abx. Acute Kidney Injury superimposed on CKD stage 3 - creatinine up to 1.4 on admission - improved after fluids - monitor creat HTN - blood pressure stable, monitor for hypotension - for now continue Lisinopril DVT ppx - subq heparin FULL, NO VENT
[2017-08-06 15:04] VITALS: BP 93/51; PULSE 65; TEMP 36.7; O2SAT 98
[2017-08-06 21:05] VITALS: BP 108/46; PULSE 71; O2SAT 99
[2017-08-07] VITALS (7 sets, daily range): BP systolic 71–116; BP diastolic 39–58; PULSE 63–81; TEMP 36.8–36.9; O2SAT 96–100
[2017-08-07 06:24] LABS: HEMATOCRIT 24.7 % (37-47); HEMOGLOBIN 8.5 g/dL (12.0-16.0); MEAN CORPUSCULAR HEMOGLOBIN 32.7 pg (25-34); MEAN CORPUSCULAR HGB CONC 34.4 g/dl (32-36); MEAN PLATELET VOLUME 9.6 fL (7.4-10.4); PLATELET COUNT 230 K/uL (130-400); RED CELL DISTRIBUTION WIDTH CV 13.1 % (11.5-14.5); RED CELL DISTRIBUTION WIDTH SD 45.9 fL (36.4-46.3); WHITE BLOOD COUNT 9.07 K/uL (4.8-10.8)
[2017-08-07] MEDS: LEVOTHYROXINE 50 MCG TAB PO SCH (06:38)
[2017-08-07 06:44] LABS: CALCIUM 7.4 mg/dl (8.5-10.1); CREATININE 1.06 mg/dl (0.60-1.20); POTASSIUM 4.2 mmol/L (3.5-5.1)
[2017-08-07] MEDS: CARVEDILOL 6.25 MG TAB PO SCH ×2 (07:47→20:32)
[2017-08-07] MEDS: CALCIUM 600MG + VIT D 400 IU TAB PO SCH ×2 (07:47→16:54)
[2017-08-07] MEDS: MULTIVITAMIN TAB PO SCH (07:47)
[2017-08-07] MEDS: LISINOPRIL 10 MG TAB PO SCH (07:48)
[2017-08-07] MEDS: HEPARIN SOD 5000 UNIT/0.5 ML CARP SQ SCH ×2 (07:48→20:34)
[2017-08-07] MEDS: ASCORBIC ACID 500 MG TAB PO SCH (07:48)
--- NOTE | 2017-08-07 12:49 | Progress Note ---
Subjective Date of Service: August 07, 2017. Subjective Pt evaluation today including: conversation w/ patient, physical exam, lab review, review of studies, review of inpatient medication list Problem List Medical Problems: (1) Elevated liver enzymes Status: Acute (2) Hyponatremia Status: Acute (3) Hypoxia Status: Acute (4) PNA (pneumonia) Status: Acute (5) Pneumonia Status: Acute Review of Systems Constitutional: + weakness, No fever, No chills Respiratory: No cough, No sputum, No shortness of breath Cardiac: No chest pain, No edema, No palpitations Medications Current Inpatient Medications Medications (Trade) Dose Ordered Sig/Miguel Route Start Time Stop Time Status Last Admin Dose Admin Carvedilol (Coreg Tab) 6.25 mg BID PO 08/06/17 09:00 09/05/17 08:59 08/07/17 07:47 6.25 MG Levothyroxine Sodium (Synthroid Tab) 50 mcg DAILYBB PO 08/06/17 06:30 09/05/17 06:29 08/07/17 06:38 50 MCG Lisinopril (Zestril Tab) 10 mg DAILY PO 08/06/17 09:00 09/05/17 08:59 08/07/17 07:48 10 MG Multivitamins (Multivitamin Tab) 1 tab DAILY PO 08/06/17 09:00 09/05/17 08:59 08/07/17 07:47 1 TAB Ascorbic Acid (Vitamin C Tab) 500 mg DAILY PO 08/06/17 09:00 09/05/17 08:59 08/07/17 07:48 500 MG Calcium/Vitamin D (Caltrate Plus Tab) 1 tab BID17 PO 08/06/17 09:00 09/05/17 08:59 08/07/17 07:47 1 TAB Benzonatate (Tessalon Perles Cap) 100 mg TID PRN PO 08/05/17 21:15 09/04/17 21:14 Levofloxacin 750 mg/Prmx 150 ml @ 100 mls/hr Q2D IV 08/07/17 17:00 08/14/17 16:59 Heparin Sodium (Porcine) (Heparin Sq 5000 Unit/0.5ml) 5,000 unit Q12 SQ 08/06/17 09:00 09/05/17 08:59 08/07/17 07:48 5,000 UNIT Albuterol/ Ipratropium (Duoneb) 3 ml Q4R PRN INH 08/06/17 05:15 09/05/17 05:14 Objective Vital Signs Date Time Temp Pulse Resp B/P (MAP) Pulse Ox O2 Delivery O2 Flow Rate FiO2 08/07/17 08:01 Nasal Cannula 2.0 08/07/17 07:20 36.9 63 20 107/58 (74) 98 Nasal Cannula 2.0 08/07/17 00:22 36.9 73 18 94/54 (67) 100 2.0 08/07/17 00:20 Nasal Cannula 2.0 08/06/17 21:05 71 108/46 (66) 99 Nasal Cannula 2.0 08/06/17 16:00 Nasal Cannula 2.0 08/06/17 15:04 36.7 65 18 93/51 (65) 98 Nasal Cannula 2.0 Physical Exam General Appearance: no apparent distress Respiratory/Chest: no respiratory distress, no accessory muscle use Cardiovascular: regular rate, rhythm, no edema, no murmur Extremities: normal inspection, no pedal edema Neurologic/Psychiatric: no motor/sensory deficits, alert, normal mood/affect Skin: normal color Lymphatic: no adenopathy Laboratory Results Last 24 Hours Test 08/07/17 06:15 White Blood Count 9.07 K/uL Red Blood Count 2.60 M/uL Hemoglobin 8.5 g/dL Hematocrit 24.7 % Mean Corpuscular Volume 95.0 fL Mean Corpuscular Hemoglobin 32.7 pg Mean Corpuscular Hemoglobin Concent 34.4 g/dl RDW Standard Deviation 45.9 fL RDW Coefficient of Variation 13.1 % Platelet Count 230 K/uL Mean Platelet Volume 9.6 fL Sodium Level 137 mmol/L Potassium Level 4.2 mmol/L Chloride Level 107 mmol/L Carbon Dioxide Level 23 mmol/L Anion Gap 7.0 mmol/L Blood Urea Nitrogen 36 mg/dl Creatinine 1.06 mg/dl Est Creatinine Clear Calc Drug Dose 25.5 ml/min Estimated GFR () 54.7 Estimated GFR (Non- 47.2 BUN/Creatinine Ratio 33.9 Random Glucose 86 mg/dl Calcium Level 7.4 mg/dl Assessment and Plan This is an 86 year old female with a past medical history of HTN, hypothyroidism , CKD stage 3, chronic anemia, chronic diastolic CHF - presents with cough, fever and found to have pneumonia Community Acquired Pneumonia 08/07 - patient is doing well - will order PT/OT and ambulate in hallways - plan to d/c home, likely does not need home health - will d/c with Levaquin to total about 7 days 08/06 - CXR - Alveolar opacities about the right lung base with focal opacity measuring up to 2.5 cm. Infectious pneumonia and/or pulmonary nodule are considerations. Follow-up imaging to document complete resolution is needed. - fevers, cough, white count elevation - giving Levaquin and IVFs - white count improving, clinically improving, monitor - likely d/c home in 1-2 days with abx. Acute Kidney Injury superimposed on CKD stage 3 - resolved - creatinine up to 1.4 on admission - improved after fluids - monitor creat HTN - blood pressure stable, monitor for hypotension - for now continue Lisinopril DVT ppx - subq heparin FULL, NO VENT
[2017-08-07] MEDS ORDERED: LEVOFLOXACIN / D5W 750 MG in PREMIXED IN D5W 150 ML IV SCH (17:00)
[2017-08-08 05:34] LABS: HEPATITIS A IGM TC 51813E NON-REACTIVE (NON-REACTIVE); HEPATITIS B CORE IGM TC51854R NON-REACTIVE (NON-REACTIVE)
[2017-08-08] MEDS: LEVOTHYROXINE 50 MCG TAB PO SCH (06:05)
[2017-08-08 06:50] VITALS: BP 132/65; PULSE 75; TEMP 36.6; O2SAT 95
[2017-08-08 07:33] LABS: HEMATOCRIT 25.7 % (37-47); MEAN CELL VOLUME 95.5 fL (80-100); MEAN CORPUSCULAR HEMOGLOBIN 33.5 pg (25-34); MEAN PLATELET VOLUME 10.1 fL (7.4-10.4); PLATELET COUNT 298 K/uL (130-400); RED CELL DISTRIBUTION WIDTH CV 13.5 % (11.5-14.5); RED CELL DISTRIBUTION WIDTH SD 47.7 fL (36.4-46.3); WHITE BLOOD COUNT 9.84 K/uL (4.8-10.8)
[2017-08-08] MEDS: CALCIUM 600MG + VIT D 400 IU TAB PO SCH (07:42)
[2017-08-08] MEDS: LISINOPRIL 10 MG TAB PO SCH (07:42)
[2017-08-08] MEDS: CARVEDILOL 6.25 MG TAB PO SCH (07:42)
[2017-08-08] MEDS: ASCORBIC ACID 500 MG TAB PO SCH (07:42)
[2017-08-08] MEDS: MULTIVITAMIN TAB PO SCH (07:42)
[2017-08-08] MEDS: HEPARIN SOD 5000 UNIT/0.5 ML CARP SQ SCH (07:43)
[2017-08-08 08:02] LABS: CALCIUM 7.7 mg/dl (8.5-10.1); CREATININE 1.18 mg/dl (0.60-1.20); POTASSIUM 4.3 mmol/L (3.5-5.1)
--- NOTE | 2017-08-08 08:14 | DIAGNOSTIC IMAGING REPORT ---
TWO VIEW CHEST CLINICAL HISTORY: Follow-up pneumonia. FINDINGS: PA and lateral chest radiographs are compared to study dated 08/05/2017. The cardiomediastinal silhouette is unremarkable. There is atherosclerotic calcification of the thoracic aorta. Emphysema is suspected and there is chronic interstitial thickening. There is patchy airspace consolidation at both lung bases, right larger than left. There is a small right pleural effusion. Foci of scarring are again noted in the upper lobes. There is no pneumothorax. The skeletal structures are osteopenic. Degenerative change is seen throughout the thoracic spine in the shoulders. IMPRESSION: 1. Bibasilar consolidation, right greater than left as not significantly changed from 08/05/2017. Continued follow-up to resolution is recommended. 2. There is a small right pleural effusion. Electronically signed by: Dimitri South M.D. 08/08/2017 8:13 AM Dictated Date/Time: 08/08/2017 8:11 AM
--- NOTE | 2017-08-08 10:03 | Progress Note ---
Subjective Date of Service: August 08, 2017. Subjective Pt evaluation today including: conversation w/ patient, physical exam, lab review, review of studies, review of inpatient medication list Saw/examined the patient in room 256 She is doing well, no shortness of breath, saturating well on room air States she is doing fine in terms of ambulation and weakness cough persists, but improving Eager to go home Problem List Medical Problems: (1) Elevated liver enzymes Status: Acute (2) Hyponatremia Status: Acute (3) Hypoxia Status: Acute (4) PNA (pneumonia) Status: Acute (5) Pneumonia Status: Acute Review of Systems Constitutional: No fever, No chills, No weakness Respiratory: + cough, No sputum, No wheezing, No shortness of breath, No dyspnea on exertion, No dyspnea at rest, No hemoptysis Cardiac: No chest pain, No edema, No palpitations Medications Current Inpatient Medications Medications (Trade) Dose Ordered Sig/Miguel Route Start Time Stop Time Status Last Admin Dose Admin Carvedilol (Coreg Tab) 6.25 mg BID PO 08/06/17 09:00 09/05/17 08:59 08/08/17 07:42 6.25 MG Levothyroxine Sodium (Synthroid Tab) 50 mcg DAILYBB PO 08/06/17 06:30 09/05/17 06:29 08/08/17 06:05 50 MCG Lisinopril (Zestril Tab) 10 mg DAILY PO 08/06/17 09:00 09/05/17 08:59 08/08/17 07:42 10 MG Multivitamins (Multivitamin Tab) 1 tab DAILY PO 08/06/17 09:00 09/05/17 08:59 08/08/17 07:42 1 TAB Ascorbic Acid (Vitamin C Tab) 500 mg DAILY PO 08/06/17 09:00 09/05/17 08:59 08/08/17 07:42 500 MG Calcium/Vitamin D (Caltrate Plus Tab) 1 tab BID17 PO 08/06/17 09:00 09/05/17 08:59 08/08/17 07:42 1 TAB Benzonatate (Tessalon Perles Cap) 100 mg TID PRN PO 08/05/17 21:15 09/04/17 21:14 Levofloxacin 750 mg/Prmx 150 ml @ 100 mls/hr Q2D IV 08/07/17 17:00 08/14/17 16:59 08/07/17 16:54 100 MLS/HR Heparin Sodium (Porcine) (Heparin Sq 5000 Unit/0.5ml) 5,000 unit Q12 SQ 08/06/17 09:00 09/05/17 08:59 08/08/17 07:43 5,000 UNIT Albuterol/ Ipratropium (Duoneb) 3 ml Q4R PRN INH 08/06/17 05:15 09/05/17 05:14 Objective Vital Signs Date Time Temp Pulse Resp B/P (MAP) Pulse Ox O2 Delivery O2 Flow Rate FiO2 08/08/17 08:30 Room Air 08/08/17 06:50 36.6 75 20 132/65 (87) 95 Room Air 08/08/17 00:15 Room Air 08/07/17 23:11 36.9 76 16 116/48 (70) 96 Room Air 08/07/17 20:31 75 18 100/56 (71) 96 Room Air 08/07/17 16:00 99 Nasal Cannula 1.5 08/07/17 15:30 85/46 (59) 08/07/17 15:28 36.8 81 16 71/40 (50) 99 Nasal Cannula 1.5 77/39 (52) Physical Exam General Appearance: no apparent distress Respiratory/Chest: chest non-tender, lungs clear, normal breath sounds, no respiratory distress, no accessory muscle use Cardiovascular: regular rate, rhythm, no edema, no gallop, no JVD, no murmur Abdomen: normal bowel sounds, non tender, soft Extremities: normal inspection, no pedal edema Laboratory Results Last 24 Hours Test 08/08/17 06:34 White Blood Count 9.84 K/uL Red Blood Count 2.69 M/uL Hemoglobin 9.0 g/dL Hematocrit 25.7 % Mean Corpuscular Volume 95.5 fL Mean Corpuscular Hemoglobin 33.5 pg Mean Corpuscular Hemoglobin Concent 35.0 g/dl RDW Standard Deviation 47.7 fL RDW Coefficient of Variation 13.5 % Platelet Count 298 K/uL Mean Platelet Volume 10.1 fL Sodium Level 136 mmol/L Potassium Level 4.3 mmol/L Chloride Level 106 mmol/L Carbon Dioxide Level 24 mmol/L Anion Gap 6.0 mmol/L Blood Urea Nitrogen 34 mg/dl Creatinine 1.18 mg/dl Est Creatinine Clear Calc Drug Dose 22.9 ml/min Estimated GFR () 48.0 Estimated GFR (Non- 41.4 BUN/Creatinine Ratio 29.0 Random Glucose 90 mg/dl Calcium Level 7.7 mg/dl Assessment and Plan This is an 86 year old female with a past medical history of HTN, hypothyroidism , CKD stage 3, chronic anemia, chronic diastolic CHF - presents with cough, fever and found to have pneumonia Community Acquired Pneumonia 08/08 - patient is ambulating well in the hallways with nursing - she does not want home health, eager to go home - will d/c with Levaquin - does not require O2 at home 08/07 - patient is doing well - will order PT/OT and ambulate in hallways - plan to d/c home, likely does not need home health - will d/c with Levaquin to total about 7 days 08/06 - CXR - Alveolar opacities about the right lung base with focal opacity measuring up to 2.5 cm. Infectious pneumonia and/or pulmonary nodule are considerations. Follow-up imaging to document complete resolution is needed. - fevers, cough, white count elevation - giving Levaquin and IVFs - white count improving, clinically improving, monitor - likely d/c home in 1-2 days with abx. Acute Kidney Injury superimposed on CKD stage 3 - resolved - creatinine up to 1.4 on admission - improved after fluids - monitor creat HTN - blood pressure stable, monitor for hypotension - for now continue Lisinopril DVT ppx - subq heparin FULL, NO VENT
[2017-08-08] MEDS ORDERED: LEVO1TAB35 PO (10:10)
[2017-08-08] MEDS ORDERED: BENZ100C7 PO (10:10)
--- NOTE | 2017-08-08 10:15 | Discharge Instructions ---
Discharge Instructions Date of Service August 08, 2017. Admission Reason for Admission: Cough, Pneumonia Discharge Discharge Diagnosis / Problem: Pneumonia Discharge Goals Goal(s): Decrease discomfort, Improve function, Diagnostic testing, Therapeutic intervention Activity Recommendations Activity Limitations: resume your previous activity . Instructions / Follow-Up Instructions / Follow-Up Please follow-up Dr. Bueno on Monday, August 14 at 1:45PM * You will be on Levaquin (antibiotic); take this every other day; on August 09, August 11, and August 13 * There should be a repeat two view chest x-ray done next week to make sure the pneumonia has cleared Current Hospital Diet Patient's current hospital diet: Low Sodium Diet (2gm Na), AHA Diet (Heart Healthy) Discharge Diet Recommended Diet: AHA Diet (Heart Healthy) Pending Studies Studies pending at discharge: no Medical Emergencies . Who to Call and When: Medical Emergencies: If at any time you feel your situation is an emergency, please call 911 immediately. . Non-Emergent Contact Non-Emergency issues call your: Primary Care Provider Call Non-Emergent contact if: you have a fever, temperature is above 101 . . "Provider Documentation" section prepared by Emiliano Elizondo. .
--- NOTE | 2017-08-08 10:17 | Discharge Summary ---
Discharge Summary Date of Service August 08, 2017. Discharge Summary Admission Date: August 05, 2017 at 21:07 Discharge Date: August 08, 2017 Discharge Disposition: Home Principal Diagnosis: Community Acquired Pneumonia Acute Kidney Injury superimposed on CKD stage 3 - resolved HTN Hypothyroidism Chronic Anemia Medication Reconciliation New Medications: Levofloxacin (Levaquin) 750 Mg Tab 750 MG PO Q2D for 7 Days, #3 TAB Benzonatate (Benzonatate) 100 Mg Cap 100 MG PO TID PRN for cough for 3 Days, #9 CAP Continued Medications: Acetaminophen (Tylenol) 500 Mg Tab 500 MG PO PRN, TAB Ascorbic Acid (Vitamin C) 500 Mg Tab 500 MG PO DAILY Calcium Citrate-Vitamin D (Citracal + D3 Maximum) 1 Tab Tab 1 TAB PO BID Carvedilol (Coreg) 6.25 Mg Tab 6.25 MG PO BID, TAB Diclofenac Sodium (Topical) (Voltaren 1% Top Gel) 1 % Gel 2 OZ TD DAILY PRN for Pain Levothyroxine Sodium (Levothyroxine Sodium) 50 Mcg Tab 1 TAB PO DAILY, TAB 5 Refills Lisinopril (Zestril) 10 Mg Tab 10 MG PO DAILY, 0 Refills Lorazepam (Ativan) 0.5 Mg Tab 0.25 MG PO BID PRN for VERTIGO, TAB Multiple Vitamin (Multivitamin) 1 Tab Tab 1 TAB PO DAILY, TAB Admission Information HPI (per Admitting provider): 86 years old female with past medical history of CKD stage III, anemia, hypothyroidism, hypertension presented to the ER from PCP office with chief complaint of cough for the past 4 days. Patient saw PCP today for nonproductive cough associated with weakness and poor oral intake. While at PCP office she was noted to have a temperature of 101F. Patient states she has not been eating much for the past 2 days. She said that she feels cold but that seems to be usual for her. She also complained of right lower rib and upper abdominal pain that occurs only in the morning when she wakes up, but as the day progress the pain improves. Denies any recent traveling or sick contacts. Denies any chest pain, palpitation, dizziness, shortness of breath, and pain. Physical Exam (per Admitting): General Appearance: WD/WN, no apparent distress Head: normocephalic, atraumatic Eyes: PERRL, EOMI ENT: + pertinent finding (decrease hearing function) Neck: no JVD, trachea midline Respiratory/Chest: chest non-tender, no respiratory distress, no accessory muscle use, + crackles (right side) Cardiovascular: regular rate, rhythm, no JVD, no murmur Abdomen/GI: normal bowel sounds, non tender, soft Back: no CVA tenderness Extremities/Musculoskelatal: no calf tenderness Neurologic/Psych: no motor/sensory deficits, alert, oriented x 3 Skin: warm/dry, no rash Hospital Course This is an 86 year old female with a past medical history of HTN, hypothyroidism , CKD stage 3, chronic anemia, chronic diastolic CHF - presents with cough, fever and found to have pneumonia Community Acquired Pneumonia 08/08 - patient is ambulating well in the hallways with nursing - she does not want home health, eager to go home - will d/c with Levaquin - does not require O2 at home 08/07 - patient is doing well - will order PT/OT and ambulate in hallways - plan to d/c home, likely does not need home health - will d/c with Levaquin to total about 7 days 08/06 - CXR - Alveolar opacities about the right lung base with focal opacity measuring up to 2.5 cm. Infectious pneumonia and/or pulmonary nodule are considerations. Follow-up imaging to document complete resolution is needed. - fevers, cough, white count elevation - giving Levaquin and IVFs - white count improving, clinically improving, monitor - likely d/c home in 1-2 days with abx. Acute Kidney Injury superimposed on CKD stage 3 - resolved - creatinine up to 1.4 on admission - improved after fluids - monitor creat HTN - blood pressure stable, monitor for hypotension - for now continue Lisinopril DVT ppx - subq heparin FULL, NO VENT Total time spent on discharge = 40 minutes This includes examination of the patient, discharge planning, medication reconciliation, and communication with other providers. Discharge Instructions Please follow-up Dr. Bueno on Monday, August 14 at 1:45PM * You will be on Levaquin (antibiotic); take this every other day; on August 09, August 11, and August 13 * There should be a repeat two view chest x-ray done next week to make sure the pneumonia has cleared
[2017-08-08 11:33] VITALS: BP 132/65; PULSE 75; TEMP 36.6; O2SAT 95
== END 2017-08-08 13:55 | disposition home or self-care (01) | DRG 194 ==
LOC: C.EDB 15:06 → C.MS2W 21:07 → ENRESERV 21:24
PROVIDERS: ADMIT Internal Medicine; ATTEND Family Medicine
DX: J18.9 Pneumonia, unspecified organism (principal); N17.9 Acute kidney failure, unspecified; E87.1 Hypo-osmolality and hyponatremia; I50.32 Chronic diastolic (congestive) heart failure; I13.0 Hypertensive heart and chronic kidney disease with heart failure and stage 1 through stage 4 chronic kidney disease, or unspecified chronic kidney disease; R09.02 Hypoxemia; R94.5 Abnormal results of liver function studies; N18.3 Chronic kidney disease, stage 3 (moderate); E03.9 Hypothyroidism, unspecified; D64.9 Anemia, unspecified; Z79.899 Other long term (current) drug therapy; Z88.2 Allergy status to sulfonamides